=== PATIENT | female | born 1950 | race Caucasian/White ===

== ENCOUNTER → 2018-06-19 | Outpatient (CLI) | payer OTHER ==
--- NOTE | 2018-06-19 15:27 | EKG ---
[address] [address] ELECTROCARDIOGRAM REPORT Name: JOHN HAYES Room #: [facility]#: [id number] Admission: 06/19/18 Attend Phys: Kary Anaya MD, Discharge: Date of : 50 Report #: [id number] THIS REPORT FOR: //name// [facility] Test Date: 2018-06-19 Test Time: 12:28:19 Pat Name: JOHN HAYES Department: Room: Gender: F Cytology Supervisor: Shae ROBERTS : 1950 Requested By: Kary Anaya Order Number: [id number] MD: Kamaljit Han Measurements Intervals [place] Rate: 52 P: 5 VA: 174 QRS: 32 QRSD: 92 T: 47 QT: 435 QTc: 405 Interpretive Statements Sinus rhythm Abnormal R-wave progression, early transition No previous ECG available for comparison Electronically Signed On 06-19-2018 15:27:25 [employer] by Kamaljit Han [email or web address] <ELECTRONICALLY SIGNED> By: Kamaljit Han MD 06/19/18 1527 D: 01/1227 27 Kamaljit Han MD /VERONICA
== END ==
LOC: CV 11:31
DX: Z01.818 Encounter for other preprocedural examination (principal)